=== PATIENT | female | born 1975 | race Caucasian/White ===

== ENCOUNTER 2019-02-10 05:43 | Day surgery (SDC) | payer BC ==
[~2019-02-10] VITALS: Ht 152.4 cm; Wt 57.6 kg
[~2019-02-10 05:43] MED LIST: IBUP-1542 PO
[2019-02-10] MEDS ORDERED: ZANTAC (06:46)
[2019-02-10] MEDS ORDERED: CARAFATE (06:46)
[2019-02-10 06:48] VITALS: Ht 152.4 cm; Wt 57.6 kg
[2019-02-10 07:22] VITALS: BP 133/84; PULSE 80; RESP 18
[2019-02-10] MEDS ORDERED: FENTAnyl 50 MCG/ML VIAL ONE (08:10)
[2019-02-10] MEDS ORDERED: MIDAZOLAM 1 MG/ML 2 ML INJ ONE (08:10)
[2019-02-10 08:28] VITALS: BP 104/65; RESP 20
--- NOTE | 2019-02-10 10:26 | CONS ---
DATE OF ADMISSION: 02/10/2019 DATE OF CONSULTATION: PATIENT NAME: SABI DAVIES TYPE OF CONSULTATION: Preoperative gastroenterology Dear Dr. Wray: I thank you very much for this kind referral. HISTORY OF PRESENT ILLNESS: Ms. Sabi Davies is a 43-year-old female patient who has been referre d to me for further evaluation of upper abdominal pain and chronic heartburn not responding to therap y with Zantac and Carafate. No past history of peptic ulcer disease. She has been taking ibuprofen for headache. No history of gallstones or liver disease. She denies any change in the bowel habit o r rectal bleeding. Not a hypertensive or diabetic. No heart disease, lung problem or kidney disease . She is status post a . SOCIAL HISTORY: Nonsmoker. No alcohol abuse. FAMILY HISTORY: No family history of gastrointestinal tract neoplasm. ALLERGIES: ALLERGIC TO COMPAZINE. MEDICATIONS: 1. Zantac 150 mg p.o. b.i.d. 2. Carafate 1 gram p.o. q.i.d. PHYSICAL EXAMINATION: She is 5 feet tall and weighs 121 pounds CARDIAC: Normal heart sounds. LUNGS: Clear. ABDOMEN: Soft, no masses. Normal bowel sounds. NEUROLOGIC: Normal neurological exam. IMPRESSION: 1. Upper abdominal pain, not responding to therapy. 2. Chronic heartburn. 3. The patient has been taking Zantac and Carafate. 4. She takes ibuprofen for the headache. 5. ALLERGIC TO COMPAZINE. 6. Status post C-sections. PLAN: Endoscopy and abdominal ultrasound for further evaluation. The procedure and possible complications are well explained to the patient. She understands and cons ents to the procedure. I thank you once again. With warmest personal regards, Dictated By: CANDY CALLES/JIM Conf#: [id number] DID#: [id number]
== END 2019-02-10 11:54 | disposition home or self-care (01) ==
LOC: GIL 05:43
PROVIDERS: ATTEND Internal Medicine Gastroenterology
DX: K29.30 Chronic superficial gastritis without bleeding (principal)
CPT/HCPCS: 43239; 84703; 88305; 88312; J2250; J3010; Z7610

== ENCOUNTER 2019-03-15 10:53 | Emergency (ER) | payer BC ==
[~2019-03-15] VITALS: Ht 152.4 cm; Wt 55.2 kg
[~2019-03-15 10:53] MED LIST changes: +CARAFATE; -IBUP-1542 PO; +ZANTAC
[2019-03-15 11:02] VITALS: Ht 152.4 cm; Wt 55.2 kg
[2019-03-15] MEDS ORDERED: SODIUM CHLORIDE 0.9% 1L BAG IV* STA (11:43)
[2019-03-15] MEDS ORDERED: ACETAMINOPHEN 325 MG TAB PO STA (11:43)
[2019-03-15] MEDS ORDERED: ONDANSETRON 4 MG INJ IV STA (12:28)
[2019-03-15] MEDS ORDERED: KETOROLAC 15 MG INJ IV STA (12:28)
[2019-03-15] MEDS ORDERED: DICYCLOMINE 20 MG INJ IM ONE (12:30)
[2019-03-15] MEDS ORDERED: RANI300T3 PO (13:24)
[2019-03-15] MEDS ORDERED: ONDA4TAB14 PO (13:35)
[2019-03-15] MEDS ORDERED: DICY10CA40 PO (13:35)
[2019-03-15] MEDS ORDERED: IBUP800T48 PO (13:35)
--- NOTE | 2019-03-15 13:35 | ERD ---
ER Documentation Chief Complaint Chief Complaint Nausea vomiting diarrhea for 2 days HPI During the patient's encounter translation services were utilized Language: Persian Source: In person 43-year-old female presents to the emergency room with several days of nausea vomiting and diarrhea. History is very different than what is told in triage. Possibly language barrier. Patient states that she has had multiple episodes of nonbloody nonbilious emesis with mild cramping abdominal discomfort and low back discomfort as well as associated looser stools. No blood in the stool and she denies any chills but has had subjective fevers. No recent travel sick contacts or antibiotics. She denies surgical history of the abdomen. ROS All systems reviewed and are negative except as per history of present illness. Medications Home Meds Reported Medications Ranitidine Hcl* (Zantac*) 300 Mg Tablet, 300 MG PO BID, #30 TAB 03/15/19 Discontinued Reported Medications [Carafate] No Conflict Check 02/10/19 [Zantac] No Conflict Check 02/10/19 Allergies Allergies: Coded Allergies: prochlorperazine (Verified Allergy, Unknown, 03/15/19) PMhx/Soc History of Surgery: Yes () Anesthesia Reaction: No Hx Neurological Disorder: No Hx Respiratory Disorders: No Hx Cardiac Disorders: No Hx Psychiatric Problems: No Hx Miscellaneous Medical Probl: No Hx Alcohol Use: No Hx Substance Use: No Hx Tobacco Use: No Smoking Status: Never smoker FmHx Family History: No diabetes Physical Exam Vitals Vital Signs Date Temp Pulse Resp B/P (MAP) Pulse Ox O2 O2 Flow FiO2 Time Delivery Rate 03/15/19 100 20 138/79 100 Room Air 12:49 (98) 03/15/19 Nasal 2 12:00 Cannula 03/15/19 100.1 112 18 112/72 100 11:02 (85) Physical Exam General: Well developed, well nourished, no acute distress Head: Normocephalic, atraumatic. Eyes: Pupils equally reactive, EOM intact ENT: Moist mucous membranes Neck: Supple, no lymphadenopathy Respiratory: Lungs clear bilaterally, no distress Cardiovascular: RRR, no murmurs, rubs, or gallops Abdominal: Soft, non-tender, non-distended, no peritoneal signs, negative Ellis sign, no tenderness to McBurney's point : Deferred MSK: No edema, no unilateral swelling, 5/5 strength Neurologic: Alert and oriented, moving all extremities, normal speech, no focal weakness, no cerebellar signs Skin: No rash Psych: Normal mood Result Diagram: 03/15/19 1203 03/15/19 1203 Results 24 hrs Laboratory Tests Test 03/15/19 11:56 03/15/19 12:03 03/15/19 12:08 Serum HCG, Qualitative NEGATIVE White Blood Count 10.4 10^3/ul Red Blood Count 4.49 10^6/ul Hemoglobin 12.8 g/dl Hematocrit 38.7 % Mean Corpuscular Volume 86.2 fl Mean Corpuscular Hemoglobin 28.5 pg Mean Corpuscular 33.1 g/dl Hemoglobin Concent Red Cell Distribution Width 12.5 % Platelet Count 240 10^3/UL Mean Platelet Volume 10.5 fl Immature Granulocytes % 0.400 % Neutrophils % 86.5 % Lymphocytes % 8.7 % Monocytes % 4.2 % Eosinophils % 0.0 % Basophils % 0.2 % Nucleated Red Blood Cells % 0.0 /100WBC Immature Granulocytes # 0.040 10^3/ul Neutrophils # 9.0 10^3/ul Lymphocytes # 0.9 10^3/ul Monocytes # 0.4 10^3/ul Eosinophils # 0.0 10^3/ul Basophils # 0.0 10^3/ul Nucleated Red Blood Cells # 0.0 10^3/ul Prothrombin Time 13.6 Sec Prothrombin Time Ratio 1.1 INR International 1.03 Normalized Ratio Activated Partial Thromboplast 27.2 Sec Time Urine Color YELLOW Urine Clarity CLOUDY Urine pH 6.0 Urine Specific [place] 1.026 Urine Ketones TRACE mg/dL Urine Nitrite NEGATIVE mg/dL Urine Bilirubin NEGATIVE mg/dL Urine Urobilinogen NEGATIVE mg/dL Urine Leukocyte Esterase NEGATIVE Rashida/ul Urine Microscopic RBC 8 /HPF Urine Microscopic WBC 6 /HPF Urine Squamous Epithelial Cells MODERATE /HPF Urine Bacteria FEW /HPF Urine Mucus MANY /HPF Urine Hemoglobin 3+ mg/dL Urine Glucose NEGATIVE mg/dL Urine Total Protein 1+ mg/dl Sodium Level 137 mmol/L Potassium Level 3.4 mmol/L Chloride Level 102 mmol/L Carbon Dioxide Level 25 mmol/L Anion Gap 10 Blood Urea Nitrogen 15 mg/dl Creatinine 0.60 mg/dl Est Glomerular Filtrat > 60 mL/min Rate mL/min Glucose Level 115 mg/dl Calcium Level 8.6 mg/dl Total Bilirubin 0.4 mg/dl Direct Bilirubin 0.00 mg/dl Indirect Bilirubin 0.4 mg/dl Aspartate Amino Transf (AST/SGOT) 15 IU/L Alanine 14 IU/L Aminotransferase (ALT/SGPT) Alkaline Phosphatase 86 IU/L Troponin I < 0.012 ng/ml Total Protein 7.8 g/dl Albumin 4.1 g/dl Globulin 3.70 g/dl Albumin/Globulin Ratio 1.10 POC Venous Lactate 1.5 mmol/L Current Medications Medications Dose Sig/Travis Start Time Status Last (Trade) Ordered Route PRN Stop Time Admin Dose Reason Admin Sodium 1,660 ml BOLUS OVER 2 03/15/19 DC 03/15/19 Chloride HOURS STAT 11:43 12:05 (NS) IV* 03/15/19 11:44 650 mg ONCE STAT 03/15/19 DC 03/15/19 Acetaminophen PO 11:43 12:06 (Tylenol 03/15/19 11:44 Tab) Ketorolac 15 mg ONCE STAT 03/15/19 DC 03/15/19 Tromethamine IV 12:28 13:12 (Toradol) 03/15/19 12:29 Ondansetron 4 mg ONCE STAT 03/15/19 DC 03/15/19 HCl (Zofran IV 12:28 13:12 Inj) 03/15/19 12:29 Dicyclomine 10 mg ONCE ONCE 03/15/19 DC 03/15/19 HCl IM 12:30 13:12 (Bentyl) 03/15/19 12:31 Procedures/MDM EKG, MONITORS, & DIAGNOSTIC IMAGING: Chest x-ray: I reviewed and interpreted a 1 view of the chest Mediastinum: No enlargement Cardiac silhouette: No cardiomegaly Airspace: Clear lung walker bilaterally without evidence of pneumothorax Bones: No evidence of fracture LAB INTERPRETATION: I reviewed the laboratory testing and it shows no evidence of acute process MEDICAL DECISION MAKING: Patient's presentation is most consistent with likely viral process. She has a benign abdominal exam without concern of appendicitis or acute into abdominal process. Her history in the emergency room is very different that was provided at triage. Consider possible language barrier. Patient denies any significant urinary symptoms. Urinalysis not consistent with UTI. The patient has a benign abdominal exam without concern for acute abdominal process. I do not believe CT imaging of the abdomen pelvis is necessary. Sepsis screening was initiated given the patient's low-grade fever. ER COURSE: * Patient continues to be well-appearing and was treated with IV fluids and nonnarcotic pain medication. * On reassessment the patient is much improved. She has a benign abdominal exa m. * At this point I feel she can be safely discharged with close primary care follow-up. Symptom management would be most appropriate. Return precautions were discussed. CONSULTATION: None DISPOSITION PLAN: The patient does not have an identifiable emergent medical condition that warrants inpatient hospitalization at this time. The patient is deemed safe for discharge with outpatient follow-up. We discussed follow up with the patient's primary care doctor within 24 to 48 hours as needed. We also discussed return to the emergency room for worsening symptoms or worsening condition. Outpatient referral: None required Discharge Medications: John Le Motrin Departure Diagnosis: Primary Impression: Nausea vomiting and diarrhea Additional Impression: Generalized abdominal pain Condition: Stable CHESTER ROSS MD March 15, 2019 13:35
[2019-03-15 14:15] VITALS: BP 119/78; PULSE 91; RESP 20
== END 2019-03-15 15:00 | disposition home or self-care (01) ==
LOC: E/R 10:53
DX: R11.2 Nausea with vomiting, unspecified (principal); R19.7 Diarrhea, unspecified; R10.84 Generalized abdominal pain
CPT/HCPCS: 36415; 71045; 80053; 81001; 83605; 84484; 84703; 85025; 85610; 85730; 87040; 87086; 93005; 96372; 96374; 96375; J0500; J1885; J2405; J7030; Z7502; Z7610